=== PATIENT | male | born 1945 | race Caucasian/White ===

== ENCOUNTER 2017-01-25 05:24 | Day surgery (SDC) | payer MEDICARE, OTHER ==
[2017-01-24 16:07] LABS: HEMOGLOBIN 15.6 g/dL (13.5-17.5); MCH 31.2 pg (26.0-34.0); MCHC 33.9 g/dL (31.0-37.0); MEAN PLATELET VOLUME 9.7 fL (7.4-10.4); RDW 13.8 % (11.5-14.5); WBC 6.2 10x3/uL (4.8-10.8)
[2017-01-24 17:01] LABS: ANION GAP 14.4 mmol/L (8-16); CALCIUM 9.6 mg/dL (8.5-10.1); CARBON DIOXIDE 27.5 mmol/L (21.0-32.0); CREATININE - SERUM 2.4 mg/dL (0.6-1.3); POTASSIUM - SERUM 4.9 mmol/L (3.5-5.1)
[~2017-01-25 05:24] MED LIST: BAYER CHEWABLE81 MG PO; BRILINTA90 MG PO; BUSPAR10 MG PO; GLIMEPIRIDE4 MG PO; HYDROCHLOROTHIA25 MG PO; HYDROCODONE-APA1 TAB; HYDROCODONE-APA1 TAB PO; LAMICTAL150 MG PO; LISINOPRIL-HCTZ1 T13 PO; MUCOMYST 2800 MG/4 M PO; NEURONTIN 300300 MG; NEURONTIN 300300 MG PO; NORVASC5 MG PO; OMEPRAZOLE40 MG PO; PLAVIX75 MG PO; PRINIVIL20 MG PO; RESTORIL15 MG PO; TESTOSTERON200 MG/ML IM; TRADJENTA5 MG PO; TRAZODONE HCL150 MG PO; TRICOR145 MG PO; VIAGRA50 MG PO; ZYLOPRIM300 MG PO; [UNRECOGNIZED DRUG - OTHER] PO
[2017-01-25 07:16] VITALS: BP 131/80; BMI 26.1
[2017-01-25] MEDS ORDERED: FLOMAX0.4 MG PO (09:55)
[2017-01-25] MEDS ORDERED: OXYCODONE HCL5 MG PO (09:55)
--- NOTE | 2017-01-25 14:40 | OP ---
PATIENT NAME: SUZY TAM MEDICAL RECORD: [id number] :41 LOCATION:.[facility] ADMISSION DATE: SURGEON: TREY GUZMAN MD DATE OF OPERATION: 01/25/2017 SURGEON: Trey Guzman MD PREOPERATIVE DIAGNOSES: 1. Bilateral inguinal hernia. 2. Diabetes. 3. Chronic kidney disease. 4. Essential hypertension. 5. Coronary artery disease. POSTOPERATIVE DIAGNOSES: 1. Bilateral inguinal hernia. 2. Diabetes. 3. Chronic kidney disease. 4. Essential hypertension. 5. Coronary artery disease. PROCEDURE PERFORMED: Laparoscopic bilateral inguinal hernia repair with mesh. ANESTHESIA: General. COMPLICATIONS: None. SPECIMENS: None. ESTIMATED BLOOD LOSS: 20 cc. Case was clean. OPERATIVE COURSE: After consent was obtained, the patient was taken to the operating room and placed in supine position on the operating table. Next, general anesthesia was given via endotracheal intubation. After a timeout was taken to confirm the correct patient and procedure, the abdomen was prepped and draped in typical sterile fashion. Local anesthetic was injected just to the right of umbilicus. A skin incision was made with a 15 blade scalpel. Dissection continued to the subcutaneous tissue at the level of the external oblique fascia using electrocautery. The external oblique fascia was incised with a 15 blade scalpel. The rectus muscle was gently split using a blunt Rita until the posterior fascia was identified. The Spacemaker balloon was then inserted into the preperitoneal space. Spacemaker balloon was inflated, was left inflated for approximately 3 minutes to ensure hemostasis. The Spacemaker balloon was removed. The preperitoneal space was then insufflated with CO2, the camera was inserted. There was adequate dissection at this time, two 5-mm trocars were placed, one in the left lower quadrant and one in the right lower quadrant under direct laparoscopic vision. The patient had large bilateral pantaloon hernias. We started on the left side. The fat within the Hesselbach's triangle was dissected on the left side first. Next, the cord structures were grasped and retracted. The peritoneum was stripped off the vessels. Dissection continued inferiorly until the vas was noted to be running medially. This was repeated on the right side, again the direct space was dissected free of all contents. There was a large direct hernia as well as an OPERATIVE REPORT [id number] SUZY TAM indirect hernia. The peritoneum was stripped off the cord structures. Dissection continued inferiorly until the vas was noted to be running medially. The abdomen was copiously irrigated and suctioned. The Den's ligament as well as the pubic tubercle was identified on both sides medially. At this time, a right-sided Ventralight ST mesh was placed into the abdomen, it was secured to the pubic tubercle medially to the rectus anteriorly covering both the direct and indirect spaces. A left-sided mesh was then placed into the preperitoneal space and secured to the pubic tubercle medially and anteriorly to the rectus muscle. It covered both the direct and indirect space. The preperitoneal space was then copiously irrigated and suctioned. The instruments were removed. The area was desufflated. The trocars were removed. The fascia was closed with an 0 Vicryl suture. Skin incisions were then closed with 4-0 Monocryl, Mastisol and Steri-Strips. Both testicles were noted to be within the scrotum. At the end of the case, all needle and instrument counts were correct. No complications occurred. The patient was extubated and transferred to the PACU in stable condition. TRANSINT:[id number] Voice Confirmation ID: [id number] DOCUMENT ID: [id number] TREY GUZMAN MD at 1440 CC: [id number] DICTATION DATE: 01/25/17 0943 COMMERCIAL PROPERTY MANAGER: 01/25/17 1137 [facility] [address] [place] [address]
--- NOTE | 2017-01-25 14:44 | NUR ---
1200--PT VOIDS, IV DC'D. NAKIA RN 1210--DISCHARGE INSTRUCTIONS GIVEN, PT VERBALIZES UNDERSTANDING. PT OFF UNIT VIA WC. NAKIA ANDREW
== END 2017-01-25 12:10 | disposition home or self-care (01) ==
LOC: D.OPS 05:24 → D.PAN 09:00 → D.OPS 09:00
PROVIDERS: Anesthesiology
DX: K40.20 Bilateral inguinal hernia, without obstruction or gangrene, not specified as recurrent (principal); E11.22 Type 2 diabetes mellitus with diabetic chronic kidney disease; I12.9 Hypertensive chronic kidney disease with stage 1 through stage 4 chronic kidney disease, or unspecified chronic kidney disease; N18.9 Chronic kidney disease, unspecified; I25.10 Atherosclerotic heart disease of native coronary artery without angina pectoris; Z01.812 Encounter for preprocedural laboratory examination

== ENCOUNTER 2018-03-27 12:32 | Observation (INO) | payer MEDICARE, OTHER ==
[~2018-03-27] VITALS: Ht 177.8 cm; Wt 84.1 kg
[~2018-03-27 12:32] MED LIST changes: +FLOMAX0.4 MG PO; +OXYCODONE HCL5 MG PO
[2018-03-27] MEDS ORDERED: NORVASC5 MG PO (12:38)
[2018-03-27] MEDS ORDERED: HUMULIN 70100 UNIT/1 (12:38)
[2018-03-27 13:25] LABS: BASOPHILS 0.4 % (0-2); EOSINOPHILS 0.9 % (0-7); HEMATOCRIT 42.8 % (42.0-54.0); HEMOGLOBIN 14.8 g/dL (13.5-17.5); IMMATURE GRANULOCYTES 0.4 % (0-5); LYMPHOCYTES 24.7 % (15-50); MCH 30.1 pg (26.0-34.0); MCHC 34.6 g/dL (31.0-37.0); MONOCYTES 8.5 % (2-11); NEUTROPHILS 65.1 % (40-80); PLATELET COUNT 165 10x3/uL (130-400); RBC 4.92 10x6/uL (4.20-6.10); RDW 13.8 % (11.5-14.5); WBC 5.5 10x3/uL (4.8-10.8)
[2018-03-27 13:38] LABS: APTT 27.9 SECONDS (22.8-39.4); INR 1.08 (0.85-1.17); PROTIME 13.5 SECONDS (11.6-15.0)
[2018-03-27 13:41] LABS: ALBUMIN 4.1 g/dL (3.4-5.0); ALKALINE PHOSPHATASE 75 U/L (46-116); ALT (SGPT) 31 U/L (10-68); BILIRUBIN - TOTAL 0.39 mg/dL (0.2-1.3); CALC OSMOLALITY 291 mosm/kg (275-300); CALCIUM 10.1 mg/dL (8.5-10.1); CARBON DIOXIDE 27.6 mmol/L (21.0-32.0); CHLORIDE - SERUM 104 mmol/L (98-107); CREATININE - SERUM 2.6 mg/dL (0.6-1.3); GLUCOSE 233 mg/dL (74-106); POTASSIUM - SERUM 4.3 mmol/L (3.5-5.1); PROTEIN - SERUM 7.4 g/dL (6.4-8.2); SODIUM 140 mmol/L (136-145); UREA NITROGEN 29 mg/dL (7-18); eGFR NON AFRICAN AMERICAN 26 mL/min (90-120)
[2018-03-27 13:49] LABS: CKMB 1.3 U/L (0.0-3.6); CREATINE KINASE 91 UL (21-232); MAGNESIUM - SERUM 1.7 mg/dL (1.8-2.4); PRO BNP 34 pg/mL (0-125); THYROID STIMULATING HORMONE 0.94 uIU/mL (0.36-3.74)
[2018-03-27 13:50] LABS: TROPONIN-I < 0.017 ng/mL (0.000-0.060)
[2018-03-27 19:41] VITALS: BP 123/78; Ht 177.8 cm; Wt 84.1 kg
[2018-03-27 20:00] VITALS: BP 146/75
[2018-03-28] VITALS: BP 124/53
[2018-03-28 04:00] VITALS: BP 156/79
[2018-03-28 08:51] VITALS: BP 167/80
[2018-03-28 10:28] LABS: BASOPHILS 0.4 % (0-2); EOSINOPHILS 1.7 % (0-7); HEMATOCRIT 41.5 % (42.0-54.0); HEMOGLOBIN 14.5 g/dL (13.5-17.5); IMMATURE GRANULOCYTES 0.2 % (0-5); LYMPHOCYTES 27.3 % (15-50); MCH 30.5 pg (26.0-34.0); MCHC 34.9 g/dL (31.0-37.0); MCV 87.2 fL (80.0-100.0); MEAN PLATELET VOLUME 10.4 fL (7.4-10.4); MONOCYTES 7.2 % (2-11); NEUTROPHILS 63.2 % (40-80); PLATELET COUNT 169 10x3/uL (130-400); RBC 4.76 10x6/uL (4.20-6.10); RDW 13.6 % (11.5-14.5); WBC 5.3 10x3/uL (4.8-10.8)
[2018-03-28 10:39] LABS: ANION GAP 13.5 mmol/L (8-16); CALCIUM 9.6 mg/dL (8.5-10.1); CARBON DIOXIDE 27.1 mmol/L (21.0-32.0); CREATININE - SERUM 2.3 mg/dL (0.6-1.3); MAGNESIUM - SERUM 1.8 mg/dL (1.8-2.4); POTASSIUM - SERUM 4.6 mmol/L (3.5-5.1)
--- NOTE | 2018-03-28 16:43 | MORECARE ---
CASE MANAGEMENT DISCHARGE SUMMARY PATIENT: SUZY TAM UNIT: [id number] ADM DATE: 03/27/18 AGE: 72 : 41 SEX: M ROOM/BED: D.2224 AUTHOR: MING SAUCEDA PHYSICIAN: REFERRING PHYSICIAN: KARLA VILCHIS MD DATE OF SERVICE: 03/28/18 Discharge Plan Patient Name: [facility] TAM [facility] [facility] 1945 Planned Disposition: Anticipated Discharge Date: Discharge Date: 03/28/2018 Expected LOS: 0 Initial Reviewer: [email or web address] Initial Review Date: 03/28/2018 Generated: 03/28/18 5:42 pm Patient Name: SUZY TAM Page [id number] at 1643 All edits/amendments must be made on the electronic document DICTATION DATE: 03/28/181641 NUT PICKER: KATHLEEN 03/28/181641 RPT#: [id number] DC DATE:03/28/18 STATUS: DIS IN [facility] [address] [place] [address] END OF REPORT
--- NOTE | 2018-03-29 13:57 | EC ---
PATIENT:SUZY TAM DATE OF SERVICE: 03/27/18 SEX: M MEDICAL RECORD: [id number] DATE OF : 41 LOCATION:[facility] AGE OF PATIENT: 72 ADMISSION DATE: 03/27/18 REFERRING PHYSICIAN: INTERPRETING PHYSICIAN: LUDWIN HOOKS MD ECHOCARDIOGRAM REPORT ECHO CHARGES 4 ECHO COMPLETE Date: 03/28/18 CLINICAL DIAGNOSIS: CVA ECHOCARDIOGRAPHIC MEASUREMENTS (adult normal given) AC root (d.<3.7cm) 3.5 cm LV Septum d (<1.2 cm> 1.1 cm Valve Excursion 1.6 cm LV Septum (systole) 1.4 cm Left Atria (s.<4.0cm> 4.5 cm LVPW d(<1.2cm) 1.6 cm RV (d.<2.3cm) 3.1 cm LVPW (sytole) 1.7 cm LV diastole(<5.6CM) 5.4 cm MV E-F(>70mm/sec) cm LV systole 4.9 cm LVOT Diameter 1.6 cm MV exc.(>10mm) cm Est.ejection fraction (50-75%) % DOPPLER: LVIT cm/sec A 84 cm/sec E 84 cm/sec LA cm/sec RVSP 24.4 mmHg LVOT 97 cm/sec AOP1/2T m/s Asc. Ao 152 cm/sec RVOT 101 cm/sec RA cm/sec PA 102 cm/sec AV Gradient Peak 9.2 mmHg AV Mean 5.9 mmHg AV Area 1.3 cm MV Gradient Peak 5.2 mmHg MV Mean 2.7 mmHg MV Area cm COMMENTS: Sales And Catering Coordinator: [place] AIKEN Manager Commercial: [address] Dr. [employer] TAPE# PACS Pericardial Effusion N DATE OF SERVICE: 03/28/2018 Adequate 2D, color flow and spectral Doppler, and M-Mode No LVH. LV internal dimensions are normal. Wall motion is normal. EF is greater than or equal to 55%. Aortic valve is sclerotic. No evidence of stenosis by Doppler interrogation. The left atrium is normal. Mitral valve shows no prolapse. Trace MR. Right-sided chambers are grossly normal. Trace TR. ECHOCARDIOGRAM REPORT [id number] SUZY TAM TRANSINT:[id number] Voice Confirmation ID: [id number] DOCUMENT ID: [id number] LUDWIN HOOKS MD at 1357 CC: [id number] DICTATION DATE: 03/28/18 1407 EVAPORATOR SUPERVISOR: 03/28/18 1505 DIS IN 03/28/18 [place] [id number] [place] [id number]
== END 2018-03-28 16:06 | disposition home or self-care (01) ==
LOC: D.ER 12:32 → D.MS 16:11 → D.EDHOLD 16:11 → OBSVTIME 16:12 → D.MS 16:14
PROVIDERS: Emergency Medicine; ADMIT Internal Medicine Nephrology
DX: I63.9 Cerebral infarction, unspecified (principal); R20.0 Anesthesia of skin; I25.10 Atherosclerotic heart disease of native coronary artery without angina pectoris; M32.9 Systemic lupus erythematosus, unspecified; E11.22 Type 2 diabetes mellitus with diabetic chronic kidney disease; I12.9 Hypertensive chronic kidney disease with stage 1 through stage 4 chronic kidney disease, or unspecified chronic kidney disease; N18.9 Chronic kidney disease, unspecified; E11.40 Type 2 diabetes mellitus with diabetic neuropathy, unspecified